=== PATIENT | male | born 1995 | race Caucasian/White ===

== ENCOUNTER 2017-07-24 19:05 | Emergency (ER) | payer SELFPAY ==
[2017-07-24 19:07] VITALS: BP 162/95; PULSE 79; RESP 18; TEMP 98.4; O2SAT 100
--- NOTE | 2017-07-24 22:32 | PD ---
Physical Exam Date Seen by Provider: Jul 24, 2017 Narrative Patient presented to them or department for evaluation of chest pain. Chest pain occurred just prior to arrival, it lasted for approximately 8 seconds. Nature and radiated to the left chest wall. Patient has no history of cardiac disease. Patient states he is currently feeling better but continues to have mild pain. He denies any shortness of breath or diaphoresis. He reported the pain as a 3 out of 10 and stated it was shooting. No Alleviating or exacerbating factors. Data Data Last Documented VS Vital Signs Date Time Temp Pulse Resp B/P (MAP) Pulse Ox O2 Delivery O2 Flow Rate FiO2 07/24/17 19:07 98.4 79 18 162/95 (117) 100 Room Air Orders Orders Electrocardiogram (07/24/17 ) [facility] Medical Record Reviewed: Yes Supervised Visit with VAZQUEZ: No Narrative Course Patient is a 22-year-old male that presented to my Evaluation of chest pain. EKG shows sinus rhythm, patient's vital signs are stable. Patient is well- appearing. Patient is waiting for medical bed. Diagnosis Primary Impression: Left against medical advice Farida Gonzalez Jul 24, 2017 22:32
--- NOTE | 2017-07-25 18:13 | EKG ---
Date Performed: 07/24/2017 Time Performed: 19:43:24 PTAGE: 22 years EKG: Sinus rhythm NORMAL ECG NO PREVIOUS TRACING DOCTOR: Dinesh Bianchi Interpretating Date/Time 07/25/2017 18:10:28
== END 2017-07-24 20:10 | disposition left against medical advice (07) ==
LOC: NED 19:05
DX: R07.9 Chest pain, unspecified (principal); Z53.21 Procedure and treatment not carried out due to patient leaving prior to being seen by health care provider
CPT/HCPCS: 93005; 99281